=== PATIENT | female | born 1945 | race Caucasian/White ===

== ENCOUNTER 2024-08-13 12:37 | Inpatient (IN) | payer MEDICAID ==
[~2024-08-13] VITALS: Ht 149.9 cm; Wt 78.5 kg
[2024-08-13 12:54] VITALS: BP 129/50; PULSE 57; RESP 15; TEMP 98.7; O2SAT 97
[2024-08-13] MEDS: cefTRIAXone 1,000 MG in DEXT 5% MINI-BAG PLUS 50 ML IV ONE (13:25)
[2024-08-13] MEDS: NACL 0.9% 1,000 ML IV SCH ×2 (13:25→15:30)
[2024-08-13] MEDS ORDERED: cefTRIAXone 1,000 MG VIAL ONE (13:27)
[2024-08-13 13:28] LABS: BASOPHILS % (AUTO) 0.6 % (0.0-2.0); EOSINOPHILS # (AUTO) 0.1 K/uL (0-0.4); EOSINOPHILS % (AUTO) 1.5 % (0.0-4.0); HEMATOCRIT 33.6 % (36-48); HEMOGLOBIN 11.2 g/dL (12.0-16.0); LYMPHOCYTES # (AUTO) 1.8 K/uL (2.5-16.5); LYMPHOCYTES % (AUTO) 35.5 % (20.5-51.1); MEAN CORPUSCULAR HEMOGLOBIN 29 pg (27-31); MEAN CORPUSCULAR HGB CONC 33 g/dL (33-37); MONOCYTES # (AUTO) 0.5 K/uL (0.8-1.0); MONOCYTES % (AUTO) 8.9 % (1.7-9.3); NEUTROPHILS # (AUTO) 2.7 K/uL (1.8-7.7); NEUTROPHILS % (AUTO) 53.5 % (42.2-75.2); PLATELET COUNT (AUTO) 200 K/uL (140-450); RED BLOOD CELL COUNT(AUTO) 3.91 MIL/uL (4.20-5.40); RED CELL DISTRIBUTION WIDTH 19.5 % (11.6-13.7); WHITE BLOOD COUNT (AUTO) 5.1 K/uL (4.8-10.8)
[2024-08-13 14:11] LABS: LACTIC ACID 0.6 mmol/L (0.4-2.0)
[2024-08-13 14:18] LABS: ANION GAP 11.9 (8-16); CALCIUM 9.1 mg/dL (8.5-10.1); CHLORIDE 100 mmol/L (98-107); CREATININE 1.4 mg/dL (0.6-1.3); GLUCOSE 262 mg/dL (74-106); POTASSIUM 4.9 mmol/L (3.5-5.1); SODIUM SERUM 134 mmol/L (136-145); UREA NITROGEN, BLOOD 23 mg/dL (7-18)
[2024-08-13] MEDS ORDERED: MAGNESIUM OXIDE 400 MG TAB PO PRN (14:20)
[2024-08-13] MEDS ORDERED: KCL 20 MEQ IN 100 mL PREMIX 200 ML IV PRN (14:20)
[2024-08-13] MEDS ORDERED: ONDANSETRON 4 MG/2 ML VIAL IVP PRN (14:20)
[2024-08-13] MEDS ORDERED: MORPHINE SULFATE 2 MG/ML SYR IVP PRN (14:20)
[2024-08-13] MEDS ORDERED: MAG SULF 2000 MG/WATER PREMIX 50 ML IV PRN (14:20)
[2024-08-13] MEDS ORDERED: HYDROcodone/APAP 5/325 MG 1 TAB TAB PO PRN (14:20)
[2024-08-13 15:01] LABS: BILIRUBIN,URINE NEGATIVE (NEGATIVE); BLOOD, URINE TRACE-I (NEGATIVE); COLOR,URINE YELLOW (YELLOW); LEUKOCYTE ESTERASE ,URINE NEGATIVE (NEGATIVE); NITRITE, URINE NEGATIVE (NEGATIVE); PROTEIN,URINE TRACE (NEGATIVE); UGLUCOSE NEGATIVE (NEGATIVE); UROBILINOGEN,URINE 0.2 EU/dL (0.2 - 1)
[2024-08-13 15:09] LABS: APPEARANCE,URINE SLIGHTLY HAZY (CLEAR)
[2024-08-13 15:10] LABS: BACTERIA,URINE 0-2 /HPF (None Seen); MUCUS,URINE None Seen /LPF (None Seen); RBC,URINE 0 /HPF (0-5); SQUAMOUS EPITHELIAL CELL,UR 0-3 (FEW) /LPF (0-3 (FEW)); WBC,URINE 0 /HPF (0-5)
[2024-08-13] MEDS ORDERED: SLIDE SUBQ (15:10)
[2024-08-13] MEDS ORDERED: SITA1TAB8 PO (15:10)
[2024-08-13] MEDS ORDERED: FURO40TA9 PO (15:10)
[2024-08-13] MEDS ORDERED: NEBI5TAB8 PO (15:10)
[2024-08-13 15:11] LABS: FINE GRANULAR CASTS,URINE 0-10 /LPF (None Seen)
[2024-08-13] MEDS ORDERED: DEXTROSE 50% 50 ML SYR IVP PRN (15:20)
[2024-08-13] MEDS: BLOOD GLUCOSE MONITORING 1 DEV DEV FS SCH (15:36)
[2024-08-13] MEDS: INSULIN LISPRO SLIDING SCALE 100 UNITS/ML VIAL SUBQ PRN (15:38)
[2024-08-13] MEDS ORDERED: VANCOMYCIN PER PHARMACY MC PRN (15:45)
[2024-08-13] MEDS: LOSARTAN 25 MG TAB PO SCH (15:55)
[2024-08-13] MEDS: VANCOMYCIN HCL 750 MG in DEXTROSE 5% 250 ML IV SCH (17:18)
[2024-08-13] MEDS: PIPERACILLIN/TAZOBACTAM 2.25 GM in DEXTROSE 5% 50 ML IV SCH (17:23)
[2024-08-13] MEDS ORDERED: PIPERACILLIN/TAZOBACTAM 3.375 GM in DEXTROSE 5% 50 ML IV SCH (18:00)
[2024-08-13 20:00] VITALS: BP 167/66; PULSE 55; RESP 14; RESP 18; TEMP 97.6; O2SAT 95; O2SAT 96
[2024-08-14] MEDS: hydrALAZINE 20 MG/ML VIAL IVP PRN (02:21)
[2024-08-14 04:00] VITALS: BP 169/57; PULSE 58; RESP 18; TEMP 97.6; O2SAT 95
[2024-08-14 06:16] LABS: ALANINE AMINOTRANSFERASE 16 U/L (12-78); ALKALINE PHOSPHATASE 62 U/L (50-136); ANION GAP 12.2 (8-16); ASPARTATE AMINOTRANSFERASE 17 U/L (15-37); CARBON DIOXIDE 20.7 mmol/L (21-32); CHLORIDE 105 mmol/L (98-107); POTASSIUM 3.9 mmol/L (3.5-5.1); SODIUM SERUM 134 mmol/L (136-145); TOTAL BILIRUBIN 0.2 mg/dL (0.0-1.0); TOTAL PROTEIN, SERUM 6.4 g/dL (6.4-8.2)
[2024-08-14 07:50] LABS: BASOPHILS % (AUTO) 0.7 % (0.0-2.0); EOSINOPHILS # (AUTO) 0.2 K/uL (0-0.4); EOSINOPHILS % (AUTO) 2.4 % (0.0-4.0); HEMOGLOBIN 11.5 g/dL (12.0-16.0); LYMPHOCYTES # (AUTO) 2.2 K/uL (2.5-16.5); LYMPHOCYTES % (AUTO) 34.7 % (20.5-51.1); MEAN CORPUSCULAR HEMOGLOBIN 29 pg (27-31); MEAN CORPUSCULAR HGB CONC 33 g/dL (33-37); MEAN CORPUSCULAR VOLUME 86.6 fL (80-94); MONOCYTES # (AUTO) 0.6 K/uL (0.8-1.0); MONOCYTES % (AUTO) 8.7 % (1.7-9.3); NEUTROPHILS # (AUTO) 3.4 K/uL (1.8-7.7); NEUTROPHILS % (AUTO) 53.5 % (42.2-75.2); RED BLOOD CELL COUNT(AUTO) 4.05 MIL/uL (4.20-5.40); WHITE BLOOD COUNT (AUTO) 6.3 K/uL (4.8-10.8)
[2024-08-14 07:51] LABS: ALBUMIN 3.2 g/dL (3.4-5.0); CREATININE 1.2 mg/dL (0.6-1.3); GLUCOSE 183 mg/dL (74-106); MAGNESIUM 1.8 mg/dL (1.8-2.4); UREA NITROGEN, BLOOD 19 mg/dL (7-18)
[2024-08-14 08:00] VITALS: BP 166/55; PULSE 55; RESP 17; TEMP 97.5; O2SAT 99
[2024-08-14 08:17] LABS: PLATELET COUNT (AUTO) 149 K/uL (140-450)
[2024-08-14 16:00] VITALS: BP 177/61; PULSE 58; RESP 18; TEMP 99.9; O2SAT 98
[2024-08-14] MEDS: VANCOMYCIN 1,000 MG in DEXTROSE 5% 250 ML IV SCH (17:10)
[2024-08-14 20:43] VITALS: PULSE 80
[2024-08-15 04:00] VITALS: BP 114/78; PULSE 60; RESP 18; TEMP 97.4; O2SAT 97
[2024-08-15 05:21] LABS: BASOPHILS % (AUTO) 0.3 % (0.0-2.0); EOSINOPHILS # (AUTO) 0.1 K/uL (0-0.4); EOSINOPHILS % (AUTO) 2.2 % (0.0-4.0); HEMATOCRIT 34.4 % (36-48); HEMOGLOBIN 11.5 g/dL (12.0-16.0); LYMPHOCYTES # (AUTO) 1.9 K/uL (2.5-16.5); LYMPHOCYTES % (AUTO) 38.6 % (20.5-51.1); MEAN CORPUSCULAR HEMOGLOBIN 29 pg (27-31); MEAN CORPUSCULAR HGB CONC 33 g/dL (33-37); MEAN CORPUSCULAR VOLUME 86.1 fL (80-94); MONOCYTES # (AUTO) 0.4 K/uL (0.8-1.0); MONOCYTES % (AUTO) 9.1 % (1.7-9.3); NEUTROPHILS # (AUTO) 2.4 K/uL (1.8-7.7); NEUTROPHILS % (AUTO) 49.8 % (42.2-75.2); PLATELET COUNT (AUTO) 145 K/uL (140-450); RED BLOOD CELL COUNT(AUTO) 3.99 MIL/uL (4.20-5.40); RED CELL DISTRIBUTION WIDTH 18.9 % (11.6-13.7); WHITE BLOOD COUNT (AUTO) 4.9 K/uL (4.8-10.8)
[2024-08-15 05:33] LABS: ALANINE AMINOTRANSFERASE 15 U/L (12-78); ALKALINE PHOSPHATASE 65 U/L (50-136); ANION GAP 10.6 (8-16); ASPARTATE AMINOTRANSFERASE 10 U/L (15-37); CARBON DIOXIDE 26.1 mmol/L (21-32); CHLORIDE 104 mmol/L (98-107); CREATININE 1.2 mg/dL (0.6-1.3); GLUCOSE 193 mg/dL (74-106); MAGNESIUM 1.9 mg/dL (1.8-2.4); PHOSPHORUS 3.6 mg/dL (2.5-4.9); POTASSIUM 3.7 mmol/L (3.5-5.1); SODIUM SERUM 137 mmol/L (136-145); TOTAL BILIRUBIN 0.3 mg/dL (0.0-1.0); TOTAL PROTEIN, SERUM 6.6 g/dL (6.4-8.2); UREA NITROGEN, BLOOD 18 mg/dL (7-18)
[2024-08-15 08:00] VITALS: PULSE 60; RESP 18; O2SAT 99
[2024-08-15] MEDS: PANTOPRAZOLE 40 MG INJ VIAL IVP SCH (10:14)
[2024-08-15] MEDS ORDERED: GAUZE TP PRN (11:15)
[2024-08-15 12:00] VITALS: BP 134/56; PULSE 54; RESP 18; TEMP 97.4; O2SAT 99
[2024-08-15] MEDS: GAUZE TP SCH (13:00)
[2024-08-15 20:00] VITALS: BP 162/69; PULSE 73; RESP 18; TEMP 97; O2SAT 97
[2024-08-16 04:00] VITALS: BP 182/68; PULSE 72; RESP 18; TEMP 97.1; O2SAT 97
[2024-08-16 05:22] LABS: BASOPHILS % (AUTO) 0.4 % (0.0-2.0); EOSINOPHILS # (AUTO) 0.2 K/uL (0-0.4); HEMATOCRIT 34.3 % (36-48); HEMOGLOBIN 11.4 g/dL (12.0-16.0); LYMPHOCYTES # (AUTO) 2.3 K/uL (2.5-16.5); MEAN CORPUSCULAR HEMOGLOBIN 29 pg (27-31); MEAN CORPUSCULAR HGB CONC 33 g/dL (33-37); MEAN CORPUSCULAR VOLUME 86.1 fL (80-94); MONOCYTES # (AUTO) 0.6 K/uL (0.8-1.0); MONOCYTES % (AUTO) 9.8 % (1.7-9.3); NEUTROPHILS # (AUTO) 2.7 K/uL (1.8-7.7); NEUTROPHILS % (AUTO) 45.8 % (42.2-75.2); PLATELET COUNT (AUTO) 145 K/uL (140-450); RED BLOOD CELL COUNT(AUTO) 3.98 MIL/uL (4.20-5.40); RED CELL DISTRIBUTION WIDTH 19.1 % (11.6-13.7); WHITE BLOOD COUNT (AUTO) 5.8 K/uL (4.8-10.8)
[2024-08-16 05:35] LABS: ALANINE AMINOTRANSFERASE 15 U/L (12-78); ALBUMIN 3.2 g/dL (3.4-5.0); ALKALINE PHOSPHATASE 62 U/L (50-136); ANION GAP 10.5 (8-16); ASPARTATE AMINOTRANSFERASE 11 U/L (15-37); CALCIUM 9.2 mg/dL (8.5-10.1); CARBON DIOXIDE 27.4 mmol/L (21-32); CHLORIDE 102 mmol/L (98-107); CREATININE 1.4 mg/dL (0.6-1.3); GLUCOSE 248 mg/dL (74-106); MAGNESIUM 1.9 mg/dL (1.8-2.4); PHOSPHORUS 3.9 mg/dL (2.5-4.9); POTASSIUM 3.9 mmol/L (3.5-5.1); SODIUM SERUM 136 mmol/L (136-145); TOTAL BILIRUBIN 0.3 mg/dL (0.0-1.0); TOTAL PROTEIN, SERUM 6.8 g/dL (6.4-8.2); UREA NITROGEN, BLOOD 23 mg/dL (7-18)
[2024-08-16 08:00] VITALS: PULSE 67; PULSE 72; RESP 18; O2SAT 98
[2024-08-16 12:00] VITALS: BP 169/64; PULSE 67; RESP 18; TEMP 98.4; O2SAT 98
[2024-08-16 20:00] VITALS: BP 168/65; PULSE 65; RESP 16; TEMP 96.6; O2SAT 95; O2SAT 98
[2024-08-16 22:30] VITALS: PULSE 64; RESP 16; O2SAT 98
[2024-08-16] MEDS: INSULIN LANTUS 100 UNITS/ML 10 ML VIAL SUBQ SCH (23:51)
[2024-08-17] VITALS: BP 154/50; PULSE 62; RESP 16; TEMP 96.8; O2SAT 96
[2024-08-17 05:18] LABS: BASOPHILS % (AUTO) 0.5 % (0.0-2.0); EOSINOPHILS # (AUTO) 0.2 K/uL (0-0.4); EOSINOPHILS % (AUTO) 4.3 % (0.0-4.0); HEMATOCRIT 33.6 % (36-48); HEMOGLOBIN 11.1 g/dL (12.0-16.0); LYMPHOCYTES # (AUTO) 2.1 K/uL (2.5-16.5); LYMPHOCYTES % (AUTO) 37.6 % (20.5-51.1); MEAN CORPUSCULAR HEMOGLOBIN 29 pg (27-31); MEAN CORPUSCULAR HGB CONC 33 g/dL (33-37); MEAN CORPUSCULAR VOLUME 86.2 fL (80-94); MONOCYTES # (AUTO) 0.5 K/uL (0.8-1.0); MONOCYTES % (AUTO) 9.8 % (1.7-9.3); NEUTROPHILS # (AUTO) 2.6 K/uL (1.8-7.7); NEUTROPHILS % (AUTO) 47.8 % (42.2-75.2); PLATELET COUNT (AUTO) 147 K/uL (140-450); RED CELL DISTRIBUTION WIDTH 19.2 % (11.6-13.7); WHITE BLOOD COUNT (AUTO) 5.5 K/uL (4.8-10.8)
[2024-08-17 05:44] LABS: ALANINE AMINOTRANSFERASE 14 U/L (12-78); ALBUMIN 3.1 g/dL (3.4-5.0); ALKALINE PHOSPHATASE 60 U/L (50-136); ANION GAP 9.7 (8-16); ASPARTATE AMINOTRANSFERASE 11 U/L (15-37); CALCIUM 9.1 mg/dL (8.5-10.1); CARBON DIOXIDE 29.1 mmol/L (21-32); CHLORIDE 103 mmol/L (98-107); CREATININE 1.4 mg/dL (0.6-1.3); GLUCOSE 169 mg/dL (74-106); POTASSIUM 3.8 mmol/L (3.5-5.1); SODIUM SERUM 138 mmol/L (136-145); TOTAL BILIRUBIN 0.3 mg/dL (0.0-1.0); TOTAL PROTEIN, SERUM 6.7 g/dL (6.4-8.2); UREA NITROGEN, BLOOD 25 mg/dL (7-18)
[2024-08-17 08:00] VITALS: PULSE 66; PULSE 75; RESP 18; O2SAT 100
[2024-08-17] MEDS ORDERED: VANCOMYCIN PER PHARMACY MC SCH (09:00)
[2024-08-17] MEDS: NACL 0.9% 1,000 ML IV SCH (10:36)
[2024-08-17 12:00] VITALS: BP 169/75; PULSE 75; RESP 18; TEMP 96.9; O2SAT 100
[2024-08-17 20:00] VITALS: BP 157/85; PULSE 70; RESP 18; TEMP 96.9; O2SAT 98
[2024-08-18 04:00] VITALS: BP 155/82; PULSE 68; RESP 18; TEMP 96.9; O2SAT 98
[2024-08-18 05:29] LABS: BASOPHILS % (AUTO) 0.5 % (0.0-2.0); EOSINOPHILS # (AUTO) 0.2 K/uL (0-0.4); EOSINOPHILS % (AUTO) 4.4 % (0.0-4.0); HEMOGLOBIN 10.8 g/dL (12.0-16.0); MEAN CORPUSCULAR HEMOGLOBIN 29 pg (27-31); MEAN CORPUSCULAR HGB CONC 34 g/dL (33-37); MEAN CORPUSCULAR VOLUME 85.8 fL (80-94); MONOCYTES # (AUTO) 0.5 K/uL (0.8-1.0); NEUTROPHILS # (AUTO) 2.6 K/uL (1.8-7.7); NEUTROPHILS % (AUTO) 49.1 % (42.2-75.2); PLATELET COUNT (AUTO) 138 K/uL (140-450); RED BLOOD CELL COUNT(AUTO) 3.73 MIL/uL (4.20-5.40); RED CELL DISTRIBUTION WIDTH 18.1 % (11.6-13.7); WHITE BLOOD COUNT (AUTO) 5.4 K/uL (4.8-10.8)
[2024-08-18 06:05] LABS: ALANINE AMINOTRANSFERASE 12 U/L (12-78); ALBUMIN 2.9 g/dL (3.4-5.0); ALKALINE PHOSPHATASE 57 U/L (50-136); ANION GAP 12.2 (8-16); ASPARTATE AMINOTRANSFERASE 12 U/L (15-37); CALCIUM 8.8 mg/dL (8.5-10.1); CARBON DIOXIDE 24.2 mmol/L (21-32); CHLORIDE 105 mmol/L (98-107); CREATININE 1.2 mg/dL (0.6-1.3); GLUCOSE 158 mg/dL (74-106); PHOSPHORUS 3.4 mg/dL (2.5-4.9); POTASSIUM 3.4 mmol/L (3.5-5.1); SODIUM SERUM 138 mmol/L (136-145); TOTAL BILIRUBIN 0.3 mg/dL (0.0-1.0); TOTAL PROTEIN, SERUM 6.3 g/dL (6.4-8.2); UREA NITROGEN, BLOOD 20 mg/dL (7-18)
[2024-08-18 08:00] VITALS: BP 175/82; PULSE 70; PULSE 74; RESP 18; TEMP 97.8; O2SAT 98
[2024-08-18] MEDS: amLODIPine 5 MG TAB PO SCH (08:20)
[2024-08-18] MEDS ORDERED: AMOX-999 PO (13:23)
[2024-08-18] MEDS ORDERED: SULF-58 PO (13:23)
[2024-08-18 16:00] VITALS: BP 185/82; PULSE 81; RESP 18; TEMP 97.5; O2SAT 96
[2024-08-18 20:00] VITALS: BP 214/63; PULSE 77; RESP 18; TEMP 97.8; O2SAT 94
[2024-08-18] MEDS: MEROPENEM 1,000 MG in NACL 0.9% 50 ML IV SCH (22:22)
[2024-08-19 04:00] VITALS: BP 126/32; PULSE 71; RESP 18; TEMP 97.7; O2SAT 97
[2024-08-19 08:00] VITALS: BP 154/70; PULSE 72; PULSE 76; RESP 17; RESP 18; TEMP 98.1; O2SAT 96
[2024-08-19] MEDS ORDERED: MERO1VIA15 IV (09:43)
[2024-08-19 16:00] VITALS: BP 158/45; PULSE 69; RESP 18; TEMP 97.2; O2SAT 97
[2024-08-19 20:00] VITALS: PULSE 73; RESP 19; TEMP 97.8; O2SAT 97
[2024-08-19] MEDS: ZOLPIDEM 5 MG TAB PO PRN (21:01)
[2024-08-20 04:00] VITALS: BP 139/44; PULSE 70; RESP 18; TEMP 97.7; O2SAT 97
[2024-08-20 08:00] VITALS: BP 134/77; PULSE 67; RESP 18; TEMP 97.1; O2SAT 97
[2024-08-20 20:00] VITALS: BP 169/65; PULSE 67; PULSE 76; RESP 18; RESP 19; TEMP 96.8; O2SAT 97; O2SAT 99
[2024-08-21 04:00] VITALS: BP_SYST 154; BP_SYST 158; BP_DIAS 50; BP_DIAS 83; PULSE 68; RESP 19; TEMP 96.8; O2SAT 97
[2024-08-21 08:00] VITALS: BP 184/76; PULSE 82; RESP 18; TEMP 96.8; O2SAT 96
[2024-08-21 09:50] VITALS: BP 158/61; PULSE 78; RESP 16
[2024-08-21 16:00] VITALS: BP 175/75; PULSE 74; RESP 18; TEMP 97.3; O2SAT 97
[2024-08-21 20:00] VITALS: BP 163/72; PULSE 76; RESP 18; TEMP 97.5; O2SAT 96
[2024-08-22] VITALS (7 sets, daily range): BP systolic 127–186; BP diastolic 75–88; PULSE 76–82; RESP 18–20; TEMP 96.3–98.2; O2SAT 96–99
[2024-08-22] MEDS: LOSARTAN 50 MG TAB PO SCH (21:36)
[2024-08-23 00:45] VITALS: BP 174/77; PULSE 74; RESP 18; TEMP 96.1; O2SAT 97
[2024-08-23] MEDS: ACETAMINOPHEN 325 MG TAB PO PRN (00:48)
[2024-08-23 06:48] LABS: BASOPHILS % (AUTO) 0.5 % (0.0-2.0); EOSINOPHILS # (AUTO) 0.1 K/uL (0-0.4); EOSINOPHILS % (AUTO) 1.7 % (0.0-4.0); HEMOGLOBIN 10.9 g/dL (12.0-16.0); LYMPHOCYTES # (AUTO) 1.8 K/uL (2.5-16.5); LYMPHOCYTES % (AUTO) 37.2 % (20.5-51.1); MEAN CORPUSCULAR HEMOGLOBIN 29 pg (27-31); MEAN CORPUSCULAR HGB CONC 34 g/dL (33-37); MEAN CORPUSCULAR VOLUME 86.4 fL (80-94); MONOCYTES # (AUTO) 0.5 K/uL (0.8-1.0); MONOCYTES % (AUTO) 9.6 % (1.7-9.3); NEUTROPHILS # (AUTO) 2.5 K/uL (1.8-7.7); PLATELET COUNT (AUTO) 156 K/uL (140-450); RED BLOOD CELL COUNT(AUTO) 3.71 MIL/uL (4.20-5.40); RED CELL DISTRIBUTION WIDTH 17.8 % (11.6-13.7); WHITE BLOOD COUNT (AUTO) 4.9 K/uL (4.8-10.8)
[2024-08-23 07:11] LABS: ANION GAP 10.8 (8-16); CALCIUM 8.7 mg/dL (8.5-10.1); CARBON DIOXIDE 26.4 mmol/L (21-32); CHLORIDE 106 mmol/L (98-107); GLUCOSE 107 mg/dL (74-106); POTASSIUM 3.2 mmol/L (3.5-5.1); SODIUM SERUM 140 mmol/L (136-145); UREA NITROGEN, BLOOD 16 mg/dL (7-18)
[2024-08-23 07:12] LABS: ALBUMIN 2.8 g/dL (3.4-5.0); MAGNESIUM 1.9 mg/dL (1.8-2.4); PHOSPHORUS 3.4 mg/dL (2.5-4.9); TOTAL BILIRUBIN 0.2 mg/dL (0.0-1.0); TOTAL PROTEIN, SERUM 6.4 g/dL (6.4-8.2)
[2024-08-23 08:00] VITALS: BP 176/80; PULSE 76; RESP 17; TEMP 97.5; O2SAT 96; O2SAT 99
[2024-08-23] MEDS: CLONIDINE HYDROCHLORIDE 0.1 MG TAB PO PRN (13:28)
[2024-08-23 16:00] VITALS: BP 122/76; PULSE 80; RESP 18; TEMP 96.4; O2SAT 99
[2024-08-23] MEDS: POTASSIUM CHLORIDE 10 MEQ TABER PO PRN (18:02)
[2024-08-23] MEDS ORDERED: PHARMACY TO DOSE MC SCH (19:25)
[2024-08-23 20:00] VITALS: PULSE 3; PULSE 76; RESP 19; TEMP 97; O2SAT 99
[2024-08-23] MEDS: ENOXAPARIN 80 MG/0.8 ML SYR SUBQ SCH (20:22)
[2024-08-24 04:00] VITALS: BP 172/73; PULSE 71; RESP 18; TEMP 97; O2SAT 96
[2024-08-24 08:00] VITALS: BP 175/74; PULSE 66; RESP 17; TEMP 97.9; O2SAT 100
[2024-08-24 16:00] VITALS: BP 159/72; PULSE 70; RESP 18; TEMP 97.8; O2SAT 98
[2024-08-24 20:00] VITALS: PULSE 73; RESP 18; TEMP 97.3; O2SAT 100
[2024-08-25 04:00] VITALS: BP 169/70; PULSE 76; RESP 18; TEMP 97; O2SAT 98
[2024-08-25 05:39] VITALS: BP 145/62; PULSE 66
[2024-08-25 08:00] VITALS: PULSE 72; RESP 18; TEMP 98.3; O2SAT 96
[2024-08-25 12:00] VITALS: BP 161/75; PULSE 72; RESP 18; TEMP 98.3; O2SAT 96
[2024-08-25 20:00] VITALS: BP_SYST 158; BP_SYST 191; BP_DIAS 71; BP_DIAS 75; PULSE 71; PULSE 78; RESP 18; RESP 19; TEMP 97.6; TEMP 97.8; O2SAT 94; O2SAT 99
[2024-08-26 04:00] VITALS: BP_SYST 111; BP_SYST 139; BP_DIAS 60; BP_DIAS 73; PULSE 74; PULSE 75; RESP 18; TEMP 97; TEMP 98.3; O2SAT 94; O2SAT 95
[2024-08-26 05:51] LABS: BASOPHILS % (AUTO) 0.5 % (0.0-2.0); EOSINOPHILS # (AUTO) 0.1 K/uL (0-0.4); EOSINOPHILS % (AUTO) 1.6 % (0.0-4.0); HEMATOCRIT 32.2 % (36-48); HEMOGLOBIN 10.8 g/dL (12.0-16.0); LYMPHOCYTES # (AUTO) 2.1 K/uL (2.5-16.5); MEAN CORPUSCULAR HEMOGLOBIN 29 pg (27-31); MEAN CORPUSCULAR HGB CONC 34 g/dL (33-37); MEAN CORPUSCULAR VOLUME 85.9 fL (80-94); MONOCYTES # (AUTO) 0.5 K/uL (0.8-1.0); MONOCYTES % (AUTO) 10.5 % (1.7-9.3); NEUTROPHILS # (AUTO) 2.1 K/uL (1.8-7.7); NEUTROPHILS % (AUTO) 43.4 % (42.2-75.2); PLATELET COUNT (AUTO) 172 K/uL (140-450); RED BLOOD CELL COUNT(AUTO) 3.75 MIL/uL (4.20-5.40); RED CELL DISTRIBUTION WIDTH 18.1 % (11.6-13.7); WHITE BLOOD COUNT (AUTO) 4.8 K/uL (4.8-10.8)
[2024-08-26 08:00] VITALS: BP 156/84; PULSE 83; RESP 17; TEMP 98.9; O2SAT 97
[2024-08-26 08:07] VITALS: PULSE 82; RESP 20; O2SAT 98
[2024-08-26] MEDS ORDERED: PHARMACY TO DOSE MC PRN (08:07)
[2024-08-26 08:22] LABS: ANION GAP 11.6 (8-16); CALCIUM 9.4 mg/dL (8.5-10.1); CARBON DIOXIDE 25.9 mmol/L (21-32); CHLORIDE 105 mmol/L (98-107); CREATININE 0.9 mg/dL (0.6-1.3); GLUCOSE 101 mg/dL (74-106); POTASSIUM 3.5 mmol/L (3.5-5.1); SODIUM SERUM 139 mmol/L (136-145); UREA NITROGEN, BLOOD 19 mg/dL (7-18)
[2024-08-26] MEDS: MEROPENEM 1,000 MG in NACL 0.9% 50 ML IV SCH (12:48)
[2024-08-26 16:00] VITALS: BP 181/75; PULSE 74; RESP 18; TEMP 98.1; O2SAT 98
[2024-08-26 20:00] VITALS: BP 168/79; PULSE 168; PULSE 84; PULSE 97; RESP 19; TEMP 96.7; O2SAT 97; O2SAT 98
[2024-08-27 08:00] VITALS: BP 149/69; PULSE 72; RESP 17; TEMP 98.3; O2SAT 99
[2024-08-27 16:00] VITALS: BP 162/70; PULSE 76; RESP 18; TEMP 98; O2SAT 98
[2024-08-27 20:00] VITALS: BP 159/85; PULSE 78; RESP 18; TEMP 97.1; O2SAT 97
[2024-08-28 04:00] VITALS: BP 154/65; PULSE 71; RESP 18; TEMP 97.5; O2SAT 95
[2024-08-28 07:06] LABS: BASOPHILS % (AUTO) 0.5 % (0.0-2.0); EOSINOPHILS # (AUTO) 0.1 K/uL (0-0.4); HEMATOCRIT 33.1 % (36-48); HEMOGLOBIN 11.2 g/dL (12.0-16.0); LYMPHOCYTES % (AUTO) 42.6 % (20.5-51.1); MEAN CORPUSCULAR HEMOGLOBIN 30 pg (27-31); MEAN CORPUSCULAR HGB CONC 34 g/dL (33-37); MEAN CORPUSCULAR VOLUME 87.1 fL (80-94); MONOCYTES # (AUTO) 0.5 K/uL (0.8-1.0); MONOCYTES % (AUTO) 10.4 % (1.7-9.3); NEUTROPHILS # (AUTO) 2.1 K/uL (1.8-7.7); NEUTROPHILS % (AUTO) 44.5 % (42.2-75.2); PLATELET COUNT (AUTO) 181 K/uL (140-450); RED CELL DISTRIBUTION WIDTH 17.4 % (11.6-13.7); WHITE BLOOD COUNT (AUTO) 4.7 K/uL (4.8-10.8)
[2024-08-28 07:36] LABS: ALANINE AMINOTRANSFERASE 43 U/L (12-78); ALBUMIN 2.9 g/dL (3.4-5.0); ALKALINE PHOSPHATASE 60 U/L (50-136); ANION GAP 10.4 (8-16); ASPARTATE AMINOTRANSFERASE 44 U/L (15-37); CALCIUM 9.2 mg/dL (8.5-10.1); CARBON DIOXIDE 28.5 mmol/L (21-32); CHLORIDE 102 mmol/L (98-107); GLUCOSE 121 mg/dL (74-106); MAGNESIUM 1.9 mg/dL (1.8-2.4); PHOSPHORUS 3.8 mg/dL (2.5-4.9); POTASSIUM 3.9 mmol/L (3.5-5.1); SODIUM SERUM 137 mmol/L (136-145); TOTAL BILIRUBIN 0.3 mg/dL (0.0-1.0); TOTAL PROTEIN, SERUM 6.8 g/dL (6.4-8.2); UREA NITROGEN, BLOOD 23 mg/dL (7-18)
[2024-08-28 08:00] VITALS: BP 181/82; PULSE 70; PULSE 84; RESP 17; RESP 18; TEMP 98; O2SAT 95; O2SAT 97
[2024-08-28 16:00] VITALS: BP 146/54; PULSE 72; RESP 18; TEMP 98.1; O2SAT 97
[2024-08-28 20:00] VITALS: PULSE 77; RESP 9; O2SAT 97
[2024-08-28 21:51] VITALS: PULSE 77
[2024-08-28 21:52] VITALS: TEMP 97.4
[2024-08-29 04:02] VITALS: BP 156/71; PULSE 72; RESP 18; TEMP 98.1; O2SAT 96
[2024-08-29 06:41] LABS: BASOPHILS % (AUTO) 0.5 % (0.0-2.0); EOSINOPHILS # (AUTO) 0.1 K/uL (0-0.4); EOSINOPHILS % (AUTO) 2.3 % (0.0-4.0); HEMATOCRIT 32.5 % (36-48); HEMOGLOBIN 10.9 g/dL (12.0-16.0); LYMPHOCYTES % (AUTO) 42.3 % (20.5-51.1); MEAN CORPUSCULAR HEMOGLOBIN 29 pg (27-31); MEAN CORPUSCULAR HGB CONC 34 g/dL (33-37); MEAN CORPUSCULAR VOLUME 86.6 fL (80-94); MONOCYTES # (AUTO) 0.5 K/uL (0.8-1.0); MONOCYTES % (AUTO) 10.5 % (1.7-9.3); NEUTROPHILS # (AUTO) 2.1 K/uL (1.8-7.7); NEUTROPHILS % (AUTO) 44.4 % (42.2-75.2); PLATELET COUNT (AUTO) 179 K/uL (140-450); RED BLOOD CELL COUNT(AUTO) 3.76 MIL/uL (4.20-5.40); RED CELL DISTRIBUTION WIDTH 17.3 % (11.6-13.7); WHITE BLOOD COUNT (AUTO) 4.7 K/uL (4.8-10.8)
[2024-08-29 06:47] LABS: PHOSPHORUS 3.7 mg/dL (2.5-4.9)
[2024-08-29 08:00] VITALS: BP 170/71; PULSE 74; RESP 18; TEMP 98.3; O2SAT 95; O2SAT 97
[2024-08-29 20:00] VITALS: BP 163/58; PULSE 76; RESP 19; TEMP 97.1; O2SAT 95
[2024-08-30 04:00] VITALS: BP 166/75; PULSE 76; RESP 18; TEMP 97.5; O2SAT 93
[2024-08-30 07:31] LABS: BASOPHILS % (AUTO) 0.5 % (0.0-2.0); EOSINOPHILS # (AUTO) 0.1 K/uL (0-0.4); EOSINOPHILS % (AUTO) 2.2 % (0.0-4.0); HEMATOCRIT 31.7 % (36-48); HEMOGLOBIN 10.5 g/dL (12.0-16.0); LYMPHOCYTES # (AUTO) 2.1 K/uL (2.5-16.5); LYMPHOCYTES % (AUTO) 41.6 % (20.5-51.1); MEAN CORPUSCULAR HEMOGLOBIN 29 pg (27-31); MEAN CORPUSCULAR HGB CONC 33 g/dL (33-37); MEAN CORPUSCULAR VOLUME 86.2 fL (80-94); MONOCYTES # (AUTO) 0.5 K/uL (0.8-1.0); NEUTROPHILS # (AUTO) 2.3 K/uL (1.8-7.7); NEUTROPHILS % (AUTO) 45.7 % (42.2-75.2); PLATELET COUNT (AUTO) 192 K/uL (140-450); RED BLOOD CELL COUNT(AUTO) 3.67 MIL/uL (4.20-5.40); RED CELL DISTRIBUTION WIDTH 17.3 % (11.6-13.7); WHITE BLOOD COUNT (AUTO) 5.1 K/uL (4.8-10.8)
[2024-08-30 07:55] LABS: ALANINE AMINOTRANSFERASE 41 U/L (12-78); ALBUMIN 2.8 g/dL (3.4-5.0); ALKALINE PHOSPHATASE 61 U/L (50-136); ANION GAP 10.3 (8-16); ASPARTATE AMINOTRANSFERASE 30 U/L (15-37); CARBON DIOXIDE 27.4 mmol/L (21-32); CHLORIDE 103 mmol/L (98-107); CREATININE 0.9 mg/dL (0.6-1.3); GLUCOSE 92 mg/dL (74-106); MAGNESIUM 1.9 mg/dL (1.8-2.4); PHOSPHORUS 3.8 mg/dL (2.5-4.9); POTASSIUM 3.7 mmol/L (3.5-5.1); SODIUM SERUM 137 mmol/L (136-145); TOTAL BILIRUBIN 0.2 mg/dL (0.0-1.0); TOTAL PROTEIN, SERUM 6.5 g/dL (6.4-8.2); UREA NITROGEN, BLOOD 19 mg/dL (7-18)
[2024-08-30 08:00] VITALS: BP 177/76; PULSE 67; RESP 18; TEMP 97.6; O2SAT 100
[2024-08-30 16:00] VITALS: BP 163/70; PULSE 69; RESP 18; TEMP 97.1; O2SAT 100
[2024-08-30 18:57] VITALS: BP 190/88
[2024-08-30 20:00] VITALS: BP 182/72; PULSE 78; PULSE 83; RESP 19; TEMP 97.5; TEMP 98.1; O2SAT 98
[2024-08-31 04:00] VITALS: BP 159/46; PULSE 75; RESP 20; TEMP 97.4; O2SAT 98
[2024-08-31 06:56] LABS: BASOPHILS % (AUTO) 0.5 % (0.0-2.0); EOSINOPHILS # (AUTO) 0.1 K/uL (0-0.4); EOSINOPHILS % (AUTO) 2.2 % (0.0-4.0); HEMATOCRIT 30.8 % (36-48); HEMOGLOBIN 10.4 g/dL (12.0-16.0); LYMPHOCYTES # (AUTO) 1.9 K/uL (2.5-16.5); MEAN CORPUSCULAR HEMOGLOBIN 29 pg (27-31); MEAN CORPUSCULAR HGB CONC 34 g/dL (33-37); MEAN CORPUSCULAR VOLUME 86.6 fL (80-94); MONOCYTES # (AUTO) 0.5 K/uL (0.8-1.0); MONOCYTES % (AUTO) 10.3 % (1.7-9.3); NEUTROPHILS # (AUTO) 2.4 K/uL (1.8-7.7); PLATELET COUNT (AUTO) 189 K/uL (140-450); RED BLOOD CELL COUNT(AUTO) 3.55 MIL/uL (4.20-5.40); RED CELL DISTRIBUTION WIDTH 17.1 % (11.6-13.7)
[2024-08-31 07:21] LABS: ALANINE AMINOTRANSFERASE 33 U/L (12-78); ALBUMIN 2.9 g/dL (3.4-5.0); ALKALINE PHOSPHATASE 61 U/L (50-136); ANION GAP 13.3 (8-16); ASPARTATE AMINOTRANSFERASE 18 U/L (15-37); CALCIUM 9.1 mg/dL (8.5-10.1); CARBON DIOXIDE 25.6 mmol/L (21-32); CHLORIDE 104 mmol/L (98-107); GLUCOSE 125 mg/dL (74-106); MAGNESIUM 2.1 mg/dL (1.8-2.4); PHOSPHORUS 3.7 mg/dL (2.5-4.9); POTASSIUM 3.9 mmol/L (3.5-5.1); SODIUM SERUM 139 mmol/L (136-145); TOTAL BILIRUBIN 0.3 mg/dL (0.0-1.0); TOTAL PROTEIN, SERUM 6.7 g/dL (6.4-8.2); UREA NITROGEN, BLOOD 23 mg/dL (7-18)
[2024-08-31 08:00] VITALS: BP 182/70; PULSE 86; RESP 18; TEMP 97.9; O2SAT 94
[2024-08-31 10:42] VITALS: BP 170/86
[2024-08-31 11:42] VITALS: BP 163/80; PULSE 77
[2024-08-31] MEDS: hydrALAZINE 10 MG TAB PO SCH (12:04)
[2024-08-31 16:00] VITALS: BP 136/51; PULSE 78; RESP 18; TEMP 98.1; O2SAT 96
[2024-08-31 20:00] VITALS: BP 150/77; PULSE 74; RESP 16; TEMP 98.2; O2SAT 97
[2024-08-31] MEDS: LOSARTAN 50 MG TAB PO SCH (21:28)
[2024-09-01 04:00] VITALS: BP 194/77; PULSE 64; RESP 16; TEMP 95.9; O2SAT 95
[2024-09-01] MEDS: hydrALAZINE 20 MG/ML VIAL IVP PRN (06:39)
[2024-09-01 08:00] VITALS: PULSE 64; PULSE 74; RESP 16; TEMP 96.9; O2SAT 97
[2024-09-01 09:35] LABS: BASOPHILS % (AUTO) 0.2 % (0.0-2.0); EOSINOPHILS # (AUTO) 0.1 K/uL (0-0.4); EOSINOPHILS % (AUTO) 1.4 % (0.0-4.0); HEMATOCRIT 38.1 % (36-48); HEMOGLOBIN 12.5 g/dL (12.0-16.0); LYMPHOCYTES # (AUTO) 2.3 K/uL (2.5-16.5); LYMPHOCYTES % (AUTO) 33.1 % (20.5-51.1); MEAN CORPUSCULAR HEMOGLOBIN 29 pg (27-31); MEAN CORPUSCULAR HGB CONC 33 g/dL (33-37); MEAN CORPUSCULAR VOLUME 87.1 fL (80-94); MONOCYTES # (AUTO) 0.6 K/uL (0.8-1.0); MONOCYTES % (AUTO) 8.6 % (1.7-9.3); NEUTROPHILS % (AUTO) 56.7 % (42.2-75.2); PLATELET COUNT (AUTO) 230 K/uL (140-450); RED BLOOD CELL COUNT(AUTO) 4.38 MIL/uL (4.20-5.40); RED CELL DISTRIBUTION WIDTH 17.5 % (11.6-13.7)
[2024-09-01 13:10] VITALS: BP 144/56; PULSE 67; RESP 18; TEMP 97.4; O2SAT 97
[2024-09-01 20:00] VITALS: BP 189/86; PULSE 66; RESP 18; TEMP 98; O2SAT 100
[2024-09-02 04:00] VITALS: BP 165/54; PULSE 66; RESP 18; TEMP 97.3; O2SAT 98
[2024-09-02 06:51] LABS: BASOPHILS % (AUTO) 0.4 % (0.0-2.0); EOSINOPHILS # (AUTO) 0.1 K/uL (0-0.4); EOSINOPHILS % (AUTO) 2.3 % (0.0-4.0); HEMATOCRIT 32.5 % (36-48); HEMOGLOBIN 10.9 g/dL (12.0-16.0); LYMPHOCYTES # (AUTO) 2.1 K/uL (2.5-16.5); LYMPHOCYTES % (AUTO) 37.4 % (20.5-51.1); MEAN CORPUSCULAR HEMOGLOBIN 29 pg (27-31); MEAN CORPUSCULAR HGB CONC 34 g/dL (33-37); MEAN CORPUSCULAR VOLUME 86.5 fL (80-94); MONOCYTES # (AUTO) 0.6 K/uL (0.8-1.0); MONOCYTES % (AUTO) 10.3 % (1.7-9.3); NEUTROPHILS # (AUTO) 2.7 K/uL (1.8-7.7); NEUTROPHILS % (AUTO) 49.6 % (42.2-75.2); PLATELET COUNT (AUTO) 205 K/uL (140-450); RED BLOOD CELL COUNT(AUTO) 3.76 MIL/uL (4.20-5.40); RED CELL DISTRIBUTION WIDTH 17.2 % (11.6-13.7); WHITE BLOOD COUNT (AUTO) 5.5 K/uL (4.8-10.8)
[2024-09-02 07:22] LABS: ALANINE AMINOTRANSFERASE 28 U/L (12-78); ALKALINE PHOSPHATASE 62 U/L (50-136); ANION GAP 10.8 (8-16); ASPARTATE AMINOTRANSFERASE 19 U/L (15-37); CALCIUM 9.6 mg/dL (8.5-10.1); CARBON DIOXIDE 28.7 mmol/L (21-32); CHLORIDE 102 mmol/L (98-107); GLUCOSE 119 mg/dL (74-106); POTASSIUM 4.5 mmol/L (3.5-5.1); SODIUM SERUM 137 mmol/L (136-145); TOTAL BILIRUBIN 0.2 mg/dL (0.0-1.0); TOTAL PROTEIN, SERUM 6.9 g/dL (6.4-8.2); UREA NITROGEN, BLOOD 28 mg/dL (7-18)
[2024-09-02 08:00] VITALS: PULSE 66; RESP 19; TEMP 97.9; O2SAT 96
[2024-09-02 12:00] VITALS: BP 171/74; PULSE 66; RESP 19; TEMP 97.9; O2SAT 96
[2024-09-02] MEDS ORDERED: hydrALAZINE 20 MG/ML VIAL IVP PRN (16:35)
[2024-09-02] MEDS: LORazepam 2 MG/ML VIAL IVP SCH (16:49)
[2024-09-02 20:00] VITALS: BP 146/65; PULSE 77; RESP 16; RESP 18; TEMP 97.4; O2SAT 97
[2024-09-03 04:00] VITALS: BP 143/66; PULSE 67; RESP 16; TEMP 97.5; O2SAT 95
[2024-09-03 08:00] VITALS: BP 184/76; PULSE 69; PULSE 77; RESP 18; TEMP 97.4; O2SAT 97; O2SAT 98
[2024-09-03] MEDS: hydrALAZINE 10 MG TAB PO SCH (13:00)
[2024-09-03 15:01] LABS: BASOPHILS % (AUTO) 0.4 % (0.0-2.0); EOSINOPHILS % (AUTO) 0.7 % (0.0-4.0); HEMATOCRIT 34.5 % (36-48); HEMOGLOBIN 11.5 g/dL (12.0-16.0); LYMPHOCYTES % (AUTO) 32.1 % (20.5-51.1); MEAN CORPUSCULAR HEMOGLOBIN 29 pg (27-31); MEAN CORPUSCULAR HGB CONC 33 g/dL (33-37); MEAN CORPUSCULAR VOLUME 86.5 fL (80-94); MONOCYTES # (AUTO) 0.5 K/uL (0.8-1.0); MONOCYTES % (AUTO) 8.4 % (1.7-9.3); NEUTROPHILS # (AUTO) 3.7 K/uL (1.8-7.7); NEUTROPHILS % (AUTO) 58.4 % (42.2-75.2); PLATELET COUNT (AUTO) 235 K/uL (140-450); RED BLOOD CELL COUNT(AUTO) 3.99 MIL/uL (4.20-5.40); RED CELL DISTRIBUTION WIDTH 17.3 % (11.6-13.7); WHITE BLOOD COUNT (AUTO) 6.4 K/uL (4.8-10.8)
[2024-09-03 15:25] LABS: ALANINE AMINOTRANSFERASE 29 U/L (12-78); ALKALINE PHOSPHATASE 74 U/L (50-136); ANION GAP 11.5 (8-16); ASPARTATE AMINOTRANSFERASE 16 U/L (15-37); CALCIUM 9.3 mg/dL (8.5-10.1); CARBON DIOXIDE 27.4 mmol/L (21-32); CHLORIDE 103 mmol/L (98-107); CREATININE 1.4 mg/dL (0.6-1.3); GLUCOSE 147 mg/dL (74-106); POTASSIUM 4.9 mmol/L (3.5-5.1); SODIUM SERUM 137 mmol/L (136-145); TOTAL BILIRUBIN 0.2 mg/dL (0.0-1.0); TOTAL PROTEIN, SERUM 7.1 g/dL (6.4-8.2); UREA NITROGEN, BLOOD 32 mg/dL (7-18)
[2024-09-03 16:00] VITALS: BP_SYST 155; BP_DIAS 78; BP_DIAS 80; PULSE 66; PULSE 75; RESP 18; TEMP 98; TEMP 98.4; O2SAT 99
[2024-09-03 20:00] VITALS: PULSE 71; RESP 18; TEMP 96.8; O2SAT 97
[2024-09-04 04:00] VITALS: BP 138/62; PULSE 68; RESP 18; TEMP 97; O2SAT 98
[2024-09-04 06:48] LABS: BASOPHILS % (AUTO) 0.4 % (0.0-2.0); EOSINOPHILS # (AUTO) 0.1 K/uL (0-0.4); EOSINOPHILS % (AUTO) 1.7 % (0.0-4.0); MEAN CORPUSCULAR HEMOGLOBIN 29 pg (27-31); MEAN CORPUSCULAR HGB CONC 33 g/dL (33-37); MONOCYTES # (AUTO) 0.5 K/uL (0.8-1.0); NEUTROPHILS # (AUTO) 2.7 K/uL (1.8-7.7); NEUTROPHILS % (AUTO) 49.9 % (42.2-75.2); PLATELET COUNT (AUTO) 217 K/uL (140-450); RED BLOOD CELL COUNT(AUTO) 3.84 MIL/uL (4.20-5.40); RED CELL DISTRIBUTION WIDTH 16.9 % (11.6-13.7); WHITE BLOOD COUNT (AUTO) 5.4 K/uL (4.8-10.8)
[2024-09-04 07:28] LABS: ALANINE AMINOTRANSFERASE 28 U/L (12-78); ALBUMIN 2.9 g/dL (3.4-5.0); ALKALINE PHOSPHATASE 66 U/L (50-136); ANION GAP 11.6 (8-16); ASPARTATE AMINOTRANSFERASE 17 U/L (15-37); CALCIUM 9.2 mg/dL (8.5-10.1); CARBON DIOXIDE 27.6 mmol/L (21-32); CHLORIDE 104 mmol/L (98-107); CREATININE 1.1 mg/dL (0.6-1.3); GLUCOSE 100 mg/dL (74-106); POTASSIUM 4.2 mmol/L (3.5-5.1); SODIUM SERUM 139 mmol/L (136-145); TOTAL BILIRUBIN 0.2 mg/dL (0.0-1.0); TOTAL PROTEIN, SERUM 6.9 g/dL (6.4-8.2); UREA NITROGEN, BLOOD 32 mg/dL (7-18)
[2024-09-04 08:00] VITALS: PULSE 69; RESP 18; TEMP 97.5; O2SAT 95
[2024-09-04 12:00] VITALS: BP 170/75; PULSE 69; RESP 18; TEMP 97.7; O2SAT 95
[2024-09-04 16:18] VITALS: BP 160/70; PULSE 72; RESP 18; TEMP 97.6
== END 2024-09-04 17:05 | disposition home or self-care (01) | DRG 344 ==
LOC: MED 12:37 → MMU 14:16 → MTU 15:25
PROVIDERS: ADMIT Student in an Organized Health Care Education/Training Program; ATTEND Student in an Organized Health Care Education/Training Program
PROC: 02HV33Z Insertion of Infusion Device into Superior Vena Cava, Percutaneous Approach (ICD-10-PCS; 2024-08-14)
PROC: B548ZZA Ultrasonography of Superior Vena Cava, Guidance (ICD-10-PCS; 2024-08-14)
PROC: 4A00X4Z Measurement of Central Nervous Electrical Activity, External Approach (ICD-10-PCS; principal; 2024-08-27)
DX: E11.69 Type 2 diabetes mellitus with other specified complication (principal); M86.8X7 Other osteomyelitis, ankle and foot; N17.0 Acute kidney failure with tubular necrosis; I82.A12 Acute embolism and thrombosis of left axillary vein; E11.51 Type 2 diabetes mellitus with diabetic peripheral angiopathy without gangrene; E44.1 Mild protein-calorie malnutrition; E11.621 Type 2 diabetes mellitus with foot ulcer; E87.1 Hypo-osmolality and hyponatremia; D64.9 Anemia, unspecified; L97.518 Non-pressure chronic ulcer of other part of right foot with other specified severity; I12.9 Hypertensive chronic kidney disease with stage 1 through stage 4 chronic kidney disease, or unspecified chronic kidney disease; N18.9 Chronic kidney disease, unspecified; E78.5 Hyperlipidemia, unspecified; Z89.421 Acquired absence of other right toe(s); Z86.73 Personal history of transient ischemic attack (TIA), and cerebral infarction without residual deficits; Z79.899 Other long term (current) drug therapy; Z88.8 Allergy status to other drugs, medicaments and biological substances; Z68.34 Body mass index [BMI] 34.0-34.9, adult
CPT/HCPCS: 36415; 71045; 73630; 80048; 80053; 80076; 80202; 81001; 82948; 83605; 83735; 83880; 84100; 84484; 85025; 86140; 87040; 87070; 87075; 87081; 87086; 87186; 93005; 93970; 93971; 96365; 97110; 97112; 97116; 97163-GP; 97530; 99285; J0360; J0696; J1650; J1815; J2060; J2185; J2470; J2543; J3370; J7060; Q0092

== ENCOUNTER 2024-09-12 19:25 | Emergency (ER) | payer MEDICAID ==
[~2024-09-12] VITALS: Ht 167.6 cm; Wt 79.4 kg
[~2024-09-12 19:25] MED LIST: FURO40TA9 PO; MERO1VIA15 IV; NEBI5TAB8 PO; SITA1TAB8 PO; SLIDE SUBQ
[2024-09-12 20:33] VITALS: BP 212/77; PULSE 64; RESP 16; TEMP 98.4; O2SAT 99
== END 2024-09-12 22:35 | disposition home or self-care (01) ==
LOC: MED 19:25
DX: Z48.00 Encounter for change or removal of nonsurgical wound dressing (principal); E11.9 Type 2 diabetes mellitus without complications; I10 Essential (primary) hypertension; Z79.899 Other long term (current) drug therapy; Z79.4 Long term (current) use of insulin
CPT/HCPCS: 99281